=== PATIENT | male | born 1970 | race Caucasian/White ===

== ENCOUNTER 2022-08-11 09:32 | Emergency (ER) | payer OTHER ==
[2022-08-11 10:05] LABS: HEMOGLOBIN 10.7 gm/dl (14.0-17.5); RED BLOOD COUNT 3.96 M/UL (4.20-5.50); WHITE BLOOD COUNT 12.1 K/UL (4.5-11.0)
[2022-08-11 10:32] LABS: BUN/CREATININE RATIO 17 (0-10)
[2022-08-11] MEDS ORDERED: KEPPRA500 MG PO (14:46)
== END 2022-08-11 15:02 | disposition home or self-care (01) ==
LOC: ER1 09:32
PROVIDERS: Family Medicine
DX: R55 Syncope and collapse (principal); R56.9 Unspecified convulsions; F11.20 Opioid dependence, uncomplicated; Z95.1 Presence of aortocoronary bypass graft; Z95.810 Presence of automatic (implantable) cardiac defibrillator; Z51.81 Encounter for therapeutic drug level monitoring
CPT/HCPCS: 70450; 71045; 80053; 80307; 81001; 82550; 82553; 83605; 83690; 83735; 84439; 84443; 84484; 85025; 85610; 93005; 99285; G0480